=== PATIENT | male | born 1985 | race African-American/Black ===

== ENCOUNTER 2020-02-23 19:39 | Emergency (ER) | payer SELFPAY ==
[2020-02-23] MEDS ORDERED: Lidocaine 1% 10 ML MDV INJECT ONE (20:06)
[2020-02-23] MEDS ORDERED: Diphtheria,Pertussis(Acell),Tetanus Vaccine 0.5 ML Syringe IM ONE (20:09)
--- NOTE | 2020-02-23 20:13 | EDM.PDOC ---
ED HPI GENERAL MEDICAL PROBLEM - General Chief Complaint: Bite:Animal, Insect Stated Complaint: DOG BITE Time Seen by Provider: 02/23/20 19:53 Source of Information: Reports: Patient, RN Notes Reviewed History Limitations: Reports: No Limitations - History of Present Illness INITIAL COMMENTS - FREE TEXT/NARRATIVE: Patient is a 35-year-old male who presents to the ED for the evaluation of a dog bite. Patient states he was had a friend's house, when her pitbull dog bit him in the Achilles area of his left foot. Patient was not aware of the dog being in the room or house, and he states that he jumped up onto the bed, and the dog came after him. Patient does not know if the dog is up-to-date on his vaccinations, as this dog was just recently given to his friend, a few days ago. Will enforcement will be notified. Patient himself states that he does not know if he is up-to-date on his immunizations. Otherwise he denies any other sick-like symptoms, fever/chills, cough/shortness of breath, nausea/vomiting/diarrhea. He denies any numbness or tingling distal to the injury, and still can move his ankle in all range of motion without much difficulty. Left Feet Pain Score (Numeric/FACES): 5 - Related Data Allergies Allergy/AdvReac Type Severity Reaction Status Date / Time No Known Allergies Allergy Verified 02/23/20 19:59 Home Meds: Home Meds Amoxicillin/Clavulanate K [Augmentin 875-125 MG] 1 tab PO BID #14 tablet 02/23/20 [Rx] Past Medical History - Past Health History Medical/Surgical History: Denies Medical/Surgical History Social & Family History - Tobacco Use Smoking Status *Q: Current Every Day Smoker Years of Tobacco use: 20 Packs/Tins Daily: 0.3 - Caffeine Use Caffeine Use: Reports: Coffee - Recreational Drug Use Recreational Drug Use: No ED ROS GENERAL - Review of Systems Review Of Systems: Comprehensive ROS is negative, except as noted in HPI. ED EXAM, ANIMAL BITE - Physical Exam Exam: See Below Exam Limited By: No Limitations General Appearance: Alert, WD/WN, No Apparent Distress Respiratory/Chest: No Respiratory Distress, Lungs Clear, Normal Breath Sounds, No Accessory Muscle Use, Chest Non-Tender Cardiovascular: Normal Peripheral Pulses, Regular Rate, Rhythm, No Murmur Peripheral Pulses: 2+: Dorsalis Pedis (L), Dorsalis Pedis (R) Extremities: Normal Range of Motion, Normal Capillary Refill, Other (see skin assessment for further laceration detail) Neurological: Alert, Oriented, Normal Cognition, No Motor/Sensory Deficits Psychiatric: Normal Affect, Normal Mood Skin Exam: Normal Color, Warm/Dry, Other (There are multiple lacerations noted to the left Achilles tendon area of the patient's left heel. One is a skin flap, measuring roughly 2 cm in length. Other lacerations are fairly superficial, and will likely not need suturing.) ED ANIMAL BITE PROCEDURES - Laceration/Wound Repair Left Posterior Foot Lac/Wound Length In cm: 4 Appearance: Superficial, Irregular, Mildly Contaminated (dog bite, no hair noted) Distal NVT: Neuro & Vascular Intact, No Tendon Injury Anesthetic Type: Local Local Anesthesia - Lidocaine (Xylocaine): 1% Plain Local Anesthetic Volume: 4cc Skin Prep: Chlorhexidine (Hibiciens), Saline Exploration/Debridement/Repair: Wound Explored, In a Bloodless Field, Explored to Base, No Foreign Material Found Closed With: Sutures Suture Size: 4-0 # of Sutures: 4 (wound was loosely approximated to allow flexion of the left ankle) Suture Type: Prolene, Interrupted, Simple Sterile Dressing Applied: Nurse Tetanus Status Addressed: Yes (updated at today's visit.) Progress/Comments: Multiple lacerations on the left Achilles tendon area of the patient's left heel. The area of the skin flap will be closed with loose sutures, and other areas will be left to drain and heal by secondary intention, patient will have bacitracin applied along with a nonstick dressing and Coban wrap for wound management purposes. Course - Vital Signs Last Recorded V/S: Last Vital Signs Temp 98.0 F 02/23/20 19:52 Pulse 94 02/23/20 19:52 Resp 20 02/23/20 19:52 BP 143/99 H 02/23/20 19:52 Pulse Ox 100 02/23/20 19:52 - Orders/Labs/Meds Orders: Active Orders 24 hr Category Date Time Status Vaccines to be Administered [RC] PER UNIT ROUTINE Care 02/23/20 20:09 Ordered Meds: Medications Discontinued Medications Generic Name Dose Route Start Last Admin Trade Name Freq PRN Reason Stop Dose Admin Diphtheria/Tetanus/Acell Pertussis 0.5 ml 02/23/20 20:09 02/23/20 20:22 Adacel IM 02/23/20 20:10 0.5 ml .ONCE ONE Administration Lidocaine HCl 10 ml 02/23/20 20:06 02/23/20 20:23 Xylocaine 1% INJECT 02/23/20 20:07 10 ml ONETIME ONE Administration Departure - Departure Time of Disposition: 20:16 Disposition: Home, Self-Care 01 Condition: Good Clinical Impression: Dog bite of ankle Qualifiers: Encounter type: initial encounter Laterality: left Qualified Code(s): S91.052A - Open bite, left ankle, initial encounter - Discharge Information *PRESCRIPTION DRUG MONITORING PROGRAM REVIEWED*: No *COPY OF PRESCRIPTION DRUG MONITORING REPORT IN PATIENT ART: No Prescriptions: Amoxicillin/Clavulanate K [Augmentin 875-125 MG] 1 tab PO BID #14 tablet Instructions: Animal Bite, Adult, [id number] Forms: ED Department Discharge Additional Instructions: You have been evaluated in the ED for your laceration/dog bite. Sutures will need to stay in for 10-14 days. You may return to the ED or any clinic for removal. Please keep this area clean and dry, you may cleanse with regular soap and water. No vigorous scrubbing. Watch out for signs of infection like increased redness, swelling, pain at the laceration site, or if you should develop any fevers or chills. You have been started on a antibiotic called Augmentin, as dog bites are usually prone to infection. This medication [facility] [place] [facility] [employer], please take this as prescribed until the course is completed. Regarding the dogs rabies status, please correlate with the police officers, to see if you should need rabies prophylaxis vaccines. You have up to 72 hours to determine whether or not you should need the series of shots for rabies prophylaxis. If this should be required, you may return to the ER for the start of this, or follow-up with your primary care provider on Wednesday to get these started. You may use Tylenol or ibuprofen every 6 hours as needed for further pain relief. Please do not exceed 4000 mg Tylenol or 3200 mg ibuprofen in a 24-hour time span. Please return to ED if your symptoms change or worsen. Sepsis Event Note (ED) - Evaluation Sepsis Screening Result: No Definite Risk - Focused Exam Vital Signs: Vital Signs Temp Pulse Resp BP Pulse Ox 02/23/20 19:52 98.0 F 94 20 143/99 H 100 - My Orders Last 24 Hours: My Active Orders 02/23/20 20:09 Vaccines to be Administered [RC] PER UNIT ROUTINE - Assessment/Plan Last 24 Hours: My Active Orders 02/23/20 20:09 Vaccines to be Administered [RC] PER UNIT ROUTINE
== END 2020-02-23 21:04 | disposition home or self-care (01) ==
LOC: JD.ED 19:39
DX: S91.052A Open bite, left ankle, initial encounter (principal); S86.022A Laceration of left Achilles tendon, initial encounter; Z23 Encounter for immunization; F17.210 Nicotine dependence, cigarettes, uncomplicated; W54.0XXA Bitten by dog, initial encounter
CPT/HCPCS: 12002; 90471; 90715; 99283; J2001

== ENCOUNTER 2020-02-26 10:02 | Emergency (ER) | payer SELFPAY ==
[2020-02-26] MEDS ORDERED: Rabies Vaccine (Avian) 2.5 Unit Inj Kit IM ONE (10:21)
[2020-02-26] MEDS ORDERED: Rabies Immune Globulin PF 150 Units/ML 10 ML SDV IM ONE (10:22)
--- NOTE | 2020-02-26 10:28 | EDM.PDOC ---
ED HPI GENERAL MEDICAL PROBLEM - General Chief Complaint: Skin Complaint Stated Complaint: RABIES SHOTS Time Seen by Provider: 02/26/20 10:20 Source of Information: Reports: Patient History Limitations: Reports: No Limitations - History of Present Illness INITIAL COMMENTS - FREE TEXT/NARRATIVE: 35-year-old male presents to the ED for evaluation of a dog bite to the posterior aspect of his left foot around the Achilles tendon and dorsal calcaneus. This occurred on August 26. The dog that bit him was a pitbull and was a neighbors and he is not been able to see the dog since time of injury. Please also investigated and the dog cannot be located. Therefore he returns to the ED today for rabies vaccination and rabies immunoglobulin. Wound was sutured closed and he is on antibiotic therapy. Onset: Sudden Onset Date: 02/24/20 Duration: Day(s): Location: Reports: Other (Dog bite to the posterior left foot adjacent to the Achilles tendon and calcaneus) Quality: Reports: Ache, Throbbing Severity: Mild Improves with: Reports: Rest Worsens with: Reports: Movement Context: Reports: Other (Dog bite from a pit bull 3 days ago). Denies: A ctivity, Exercise, Lifting (Walking.), Sick Contact, Trauma Treatments [employer]TING [employer]OR: Reports: NSAIDS, Other (see below) (He is taking Augmentin 8 7 5/125 mg twice daily for 7 days) Left Ankle Pain Score (Numeric/FACES): 8 - Related Data Allergies Allergy/AdvReac Type Severity Reaction Status Date / Time No Known Allergies Allergy Verified 02/26/20 10:23 Home Meds: Home Meds Amoxicillin/Clavulanate K [Augmentin 875-125 MG] 1 tab PO BID #14 tablet 02/23/20 [Rx] Past Medical History - Past Health History Medical/Surgical History: Denies Medical/Surgical History Social & Family History - Caffeine Use Caffeine Use: Reports: Coffee - Living Situation & Occupation Living situation: Reports: Single Occupation: Employed ED ROS GENERAL - Review of Systems Review Of Systems: See Below Constitutional: Reports: No Symptoms HEENT: Reports: No Symptoms Respiratory: Reports: No Symptoms Cardiovascular: Reports: No Symptoms Endocrine: Reports: No Symptoms GI/Abdominal: Reports: No Symptoms : Reports: No Symptoms Musculoskeletal: Reports: No Symptoms Skin: Reports: Other (Sutured dog bite posterior aspect of left foot. It is 3 days) Neurological: Reports: No Symptoms ( old.) Psychiatric: Reports: No Symptoms Hematologic/Lymphatic: Reports: No Symptoms Immunologic: Reports: No Symptoms ED EXAM, SKIN/RASH Exam: See Below Exam Limited By: No Limitations General Appearance: Alert, WD/WN, No Apparent Distress, Other (Temperature is 36.6. Heart rate is 89 sinus respiratory is 18 BP 124/73 with O2 sats of 99% on room air.) Eye Exam: Bilateral Eye: Normal Inspection, PERRL Throat/Mouth: Normal Inspection, Normal Lips, Normal Oropharynx Head: Atraumatic, Normocephalic Neck: Normal Inspection, Supple, Non-Tender, Full Range of Motion. No: Lymphadenopathy (L), Lymphadenopathy (R) Extremities: Other (Patient has a sutured dog bite to the posterior aspect of his left calcaneus at the insertion site of the Achilles tendon.) Neurological: Alert ( The wound appears to be healing satisfactory with no signs of infection. He did have a dressing on it which was removed for inspection.), Oriented, CN II-XII Intact, Normal Cognition, Normal Gait Psychiatric: Normal Affect, Normal Mood Skin: Warm, Dry, Intact, Normal Color, No Rash Course - Vital Signs Last Recorded V/S: Last Vital Signs Temp 36.6 C 02/26/20 10:17 Pulse 89 02/26/20 10:17 Resp 18 02/26/20 10:17 BP 124/73 02/26/20 10:17 Pulse Ox 99 02/26/20 10:17 - Orders/Labs/Meds Orders: Active Orders 24 hr Category Date Time Status Vaccines to be Administered [RC] PER UNIT ROUTINE Care 02/26/20 10:22 Active Rabies Immune Globulin/PF [Hyperrab 300 Unit/ml Vial] Med 02/26/20 11:30 Once 1,460 unit IM ONETIME ONE Medication Orders Rabies Immune Globulin (Hyperrab 300 Unit/Ml Vial) 1,460 unit IM ONETIME ONE Stop: 02/26/20 11:31 Meds: Medications Generic Name Dose Route Start Last Admin Trade Name Freq PRN Reason Stop Dose Admin Rabies Immune Globulin 1,460 unit 02/26/20 11:30 Hyperrab 300 Unit/Ml Vial IM 02/26/20 11:31 ONETIME ONE Discontinued Medications Generic Name Dose Route Start Last Admin Trade Name Freq PRN Reason Stop Dose Admin Rabies Immune Globulin 73 unit 02/26/20 10:22 Hyperrab S/D IM 02/26/20 10:23 ONETIME ONE Rabies Immune Globulin 1,460 unit 02/26/20 10:29 Hyperrab S-D Vial IM 02/26/20 10:30 ONETIME ONE Rabies Vaccine 2.5 unit 02/26/20 10:21 Rabavert IM 02/26/20 10:22 .ONCE ONE - Radiology Interpretation Free Text/Narrative:: 35-year-old male attends the ED due to a dog bite from a pit bull that was unknown to him that attacked him from behind on Wednesday, February 23. He believes it was the neighbors dog but no one has seen the dog since the attack. Police were not able to locate the dog either. Therefore the patient returns to the ED at the advice of his physician for rabies immunoglobulin and vaccination. Patient weighs 72.5 kg. He will be given 1460 units of immunoglobulin in various deep intramuscular sites. He will receive rabies vaccine 0.5 mils or 2.5 units intramuscularly into 1 of his deltoid muscles. He will return as an outpatient to complete his rabies vaccination series with today being day 0. He will return February 28 for second dose in March 04 for third dose and March 10 for the final dose. This will be done as an outpatient. Departure - Departure Time of Disposition: 11:29 Disposition: Home, Self-Care 01 Condition: Fair Clinical Impression: Dog bite of left foot, Need for prophylactic vaccination against rabies - Discharge Information *PRESCRIPTION DRUG MONITORING PROGRAM REVIEWED*: Not Applicable *COPY OF PRESCRIPTION DRUG MONITORING REPORT IN PATIENT ART: Not Applicable Instructions: Animal Bite, Adult, [id number], Sutured Wound Care Referrals: PCP,None [Primary Care Provider] - Forms: ED Department Discharge Additional Instructions: Evaluation in the emergency room today in regards to a pitbull dog bite to the posterior aspect of your left foot and ankle that occurred 3 days ago. Since the dog could not be located to identify whether or not he was up-to-date on its vaccinations including rabies vaccine you were instructed to return to the ED for rabies immunoglobulin and rabies vaccine dose. The rabies immunoglobulin provides transient immunity against the rabies virus for up to 2 to 3 weeks. Rabies vaccine will induce your body to produce antibodies against the rabies virus for many years to come. It requires 4 shots in total. You will need to return to the hospital for repeat rabies vaccine usually in your deltoid muscle in 3 days time and in 7 days time and in 14 days time as outlined in your disch arge summary. This would be February 28, March 04 and March 11. Sepsis Event Note (ED) - Focused Exam Vital Signs: Vital Signs Temp Pulse Resp BP Pulse Ox 02/26/20 10:17 36.6 C 89 18 124/73 99 - My Orders Last 24 Hours: My Active Orders 02/26/20 10:22 Vaccines to be Administered [RC] PER UNIT ROUTINE 02/26/20 11:30 Rabies Immune Globulin/PF [Hyperrab 300 Unit/ml Vial] 1,460 unit IM ONETIME ONE - Assessment/Plan Last 24 Hours: My Active Orders 02/26/20 10:22 Vaccines to be Administered [RC] PER UNIT ROUTINE 02/26/20 11:30 Rabies Immune Globulin/PF [Hyperrab 300 Unit/ml Vial] 1,460 unit IM ONETIME ONE
[2020-02-26] MEDS ORDERED: Rabies Immune Globulin/PF 300 UNIT/ML 5 ML SDV IM ONE (11:30)
== END 2020-02-26 12:15 | disposition home or self-care (01) ==
LOC: JD.ED 10:02
DX: S91.352A Open bite, left foot, initial encounter (principal); Z23 Encounter for immunization; W54.0XXA Bitten by dog, initial encounter
CPT/HCPCS: 90375; 90471; 90675; 96372; 99282; 99283